=== PATIENT | female | born 1950 | race African-American/Black ===

== ENCOUNTER 2022-03-28 16:46 | Inpatient (IN) ==
[2022-03-28 18:22] LABS: Basophils % 0.1 %; Eosinophils % 0.3 %; Hematocrit 27.5 % (35.3-44.9); Hemoglobin 8.2 g/dL (11.5-15.4); Immature Granulocytes % 0.3 % (0-4); Lymphocytes # 0.4 K/mcL (0.6-4.6); Lymphocytes % 5.5 %; Mean Corpuscular HGB Conc 29.8 g/dL (31.6-35.5); Mean Corpuscular Hemoglobin 25.2 pg (28.0-33.3); Mean Corpuscular Volume 84.6 fL (83.0-100.0); Mean Platelet Volume 10.7 fL (9.4-12.4); Monocytes # 0.5 K/mcL (0.0-1.3); Monocytes % 6.6 %; Neutrophils # 6.8 K/mcL (1.6-8.9); Platelet Count 322 K/mcL (140-400); Red Blood Count 3.25 M/mcL (3.82-4.97); Segmented Neutrophils % 87.2 %; White Blood Count 7.8 K/mcL (4.3-11.1)
[2022-03-28 18:35] LABS: Activated Partial Thrombo Time 68.3 Seconds (26.0-36.0)
[2022-03-28 18:43] LABS: Albumin 3.4 g/dL (3.5-5.7); Albumin/Globulin Ratio 1.1 (1.1-2.2); Bilirubin,Total 0.4 mg/dL (0.3-1.0); Calcium 9.7 mg/dL (8.6-10.3); Globulin 3.2 g/dL (2.4-3.5); INR 17.5; Potassium 3.4 mEq/L (3.5-5.1); Total Protein 6.6 g/dL (6.4-8.9)
[2022-03-28] MEDS ORDERED: Clindamycin 600 MG/50 ML 600 MG/50 ML IV.SOLN IVPB STA (18:48)
[2022-03-28] MEDS ORDERED: Acetaminophen IV 1,000 MG/100 ML BAG IVPB ONE (18:54)
[2022-03-28] MEDS ORDERED: Ondansetron 4 MG/2 ML VIAL IVP PRN (19:41)
[2022-03-28] MEDS ORDERED: Naloxone 0.4 MG/ML INJ IVP PRN (19:41)
[2022-03-28] MEDS ORDERED: *HR* Dextrose 50 % in Water (Syg) 50 ML SYRINGE IVP PRN (19:45)
[2022-03-28] MEDS ORDERED: D5% in Water 1,000 ML IVC PRN (19:45)
[2022-03-28] MEDS ORDERED: Dextrose Gel 15 GM/37.5 ML TUBE PO PRN ×2 (19:45)
[2022-03-28] MEDS ORDERED: Chlorhexidine Rinse 15 ML MOUTHWASH MM SCH (21:00)
[2022-03-28] MEDS ORDERED: Saliva Stimulant 44.3ml BOTTLE PO PRN (21:00)
[2022-03-28 21:36] LABS: Basophils % 0.4 %; Eosinophils % 0.1 %; Hematocrit 26.9 % (35.3-44.9); Immature Granulocytes % 0.1 % (0-4); Immature Reticulocyte % 4.2 % (11.0-38.0); Lymphocytes # 0.6 K/mcL (0.6-4.6); Lymphocytes % 7.5 %; Mean Corpuscular HGB Conc 29.7 g/dL (31.6-35.5); Mean Corpuscular Hemoglobin 24.9 pg (28.0-33.3); Mean Corpuscular Volume 83.8 fL (83.0-100.0); Mean Platelet Volume 10.2 fL (9.4-12.4); Monocytes # 0.7 K/mcL (0.0-1.3); Monocytes % 8.4 %; Neutrophils # 6.8 K/mcL (1.6-8.9); Platelet Count 314 K/mcL (140-400); Red Blood Count 3.21 M/mcL (3.82-4.97); Red Cell Distribution Width 18.1 % (11.5-14.5); Retculocyte # 0.01 M/mcL (0.05-0.10); Reticulocyte % 0.3 % (1.6-2.8); Segmented Neutrophils % 83.5 %; White Blood Count 8.2 K/mcL (4.3-11.1)
[2022-03-29] MEDS ORDERED: Clindamycin 600 MG/50 ML 600 MG/50 ML IV.SOLN IVPB SCH (01:00)
[2022-03-29 01:28] LABS: VBG Ionized Calcium 1.09 mmol/L (1.15-1.35)
[2022-03-29 01:33] LABS: Basophils % 0.2 %; Eosinophils % 0.5 %; Hematocrit 26.6 % (35.3-44.9); Hemoglobin 7.8 g/dL (11.5-15.4); Immature Granulocytes % 0.1 % (0-4); Lymphocytes # 0.6 K/mcL (0.6-4.6); Lymphocytes % 6.9 %; Mean Corpuscular HGB Conc 29.3 g/dL (31.6-35.5); Mean Corpuscular Hemoglobin 24.5 pg (28.0-33.3); Mean Corpuscular Volume 83.4 fL (83.0-100.0); Mean Platelet Volume 10.6 fL (9.4-12.4); Monocytes # 0.9 K/mcL (0.0-1.3); Monocytes % 10.5 %; Neutrophils # 6.7 K/mcL (1.6-8.9); Platelet Count 313 K/mcL (140-400); Red Blood Count 3.19 M/mcL (3.82-4.97); Red Cell Distribution Width 17.9 % (11.5-14.5); Segmented Neutrophils % 81.8 %; White Blood Count 8.2 K/mcL (4.3-11.1)
[2022-03-29 01:46] LABS: Activated Partial Thrombo Time 62.9 Seconds (26.0-36.0)
[2022-03-29 01:52] LABS: Albumin 3.4 g/dL (3.5-5.7); Albumin/Globulin Ratio 1.2 (1.1-2.2); Bilirubin,Total 0.4 mg/dL (0.3-1.0); Calcium 9.6 mg/dL (8.6-10.3); Globulin 2.9 g/dL (2.4-3.5); INR 15.3; Magnesium 1.8 mg/dL (1.6-2.6); Phosphorous 4.8 mg/dL (2.7-4.5); Potassium 3.7 mEq/L (3.5-5.1); Prothrombin Time 166.3 Seconds (9.4-12.1); Total Protein 6.3 g/dL (6.4-8.9)
[2022-03-29 02:34] LABS: Folate 6.5 ng/mL (3.0-16.0)
[2022-03-29 03:03] LABS: Estimated Average Glucose 123 mg/dl; Hemoglobin A1C 5.9 %
[2022-03-29] MEDS ORDERED: Ipratropium/Albuterol Neb 3 ML IH PRN (04:37)
[2022-03-29] MEDS ORDERED: 0.9 % Sodium Chloride 250 ML ONE ×2 (05:24→22:54)
[2022-03-29] MEDS: Acetaminophen 325 MG TABLET PO PRN (05:25)
[2022-03-29] MEDS: Clindamycin 600 MG/50 ML 600 MG/50 ML IV.SOLN IVPB SCH ×3 (05:25→21:27)
[2022-03-29] MEDS ORDERED: *HR* Phytonadione 5 MG TABLET PO ONE (10:23)
[2022-03-29 12:28] LABS: Bilirubin,Urine Negative (Negative); Blood,Urine Negative (Negative); Clarity,Urine Clear (Clear); Color,Urine Colorless (Yellow); Glucose,Urine (UA) Normal (Normal); Ketones,Urine Negative (Negative); Leukocyte Esterase,Urine Negative (Negative); Nitrite,Urine Negative (Negative); Protein,Urine Negative (Neg-Trace); Specific Gravity,Urine 1.013 (1.010-1.025); Urobilinogen,Urine Normal (Normal)
[2022-03-29 12:59] LABS: Protein/Creatinine Ratio,Urine 0.18 mg/mg (0.00-0.20); Sodium, Urine 41.3 mEq/L
[2022-03-29 14:10] LABS: Hematocrit 24.2 % (35.3-44.9); Hemoglobin 7.1 g/dL (11.5-15.4)
[2022-03-29] MEDS: metroNIDAZOLE 250 MG TABLET PO SCH ×3 (14:29→21:27)
[2022-03-29] MEDS: Insulin LISPRO 300 UNITS/3 ML VIAL SUBQ SCH ×2 (17:49→21:28)
[2022-03-29] MEDS: Saline Nasal Spray 44 ML BOTTLE NS SCH ×2 (17:52→21:28)
[2022-03-29 21:33] LABS: Hematocrit 22.5 % (35.3-44.9); Hemoglobin 6.9 g/dL (11.5-15.4)
[2022-03-29 21:44] LABS: INR 4.3
[2022-03-29 21:50] LABS: Prothrombin Time 46.9 Seconds (9.4-12.1)
[2022-03-30 00:47] LABS: Basophils % 0.1 %; Hematocrit 23.6 % (35.3-44.9); Immature Granulocytes % 0.3 % (0-4); Lymphocytes # 0.3 K/mcL (0.6-4.6); Mean Corpuscular HGB Conc 29.7 g/dL (31.6-35.5); Mean Corpuscular Hemoglobin 24.6 pg (28.0-33.3); Mean Corpuscular Volume 83.1 fL (83.0-100.0); Mean Platelet Volume 10.5 fL (9.4-12.4); Monocytes # 0.6 K/mcL (0.0-1.3); Neutrophils # 10.2 K/mcL (1.6-8.9); Platelet Count 304 K/mcL (140-400); Red Blood Count 2.84 M/mcL (3.82-4.97); Segmented Neutrophils % 91.6 %; White Blood Count 11.2 K/mcL (4.3-11.1)
[2022-03-30 00:57] LABS: INR 4.1
[2022-03-30 01:02] LABS: Prothrombin Time 45.3 Seconds (9.4-12.1)
[2022-03-30 01:06] LABS: Calcium 9.8 mg/dL (8.6-10.3); Potassium 3.5 mEq/L (3.5-5.1)
[2022-03-30] MEDS ORDERED: *HR* Metoprolol 5 MG/5 ML VIAL IVP ONE ×2 (01:08→07:32)
[2022-03-30] MEDS: Clindamycin 600 MG/50 ML 600 MG/50 ML IV.SOLN IVPB SCH ×3 (05:00→21:54)
[2022-03-30 05:33] LABS: Hemoglobin 7.4 g/dL (11.5-15.4)
[2022-03-30] MEDS ORDERED: Potassium Chloride Elixir 20 MEQ/15 ML UDC PO ONE (07:34)
[2022-03-30] MEDS: metroNIDAZOLE 250 MG TABLET PO SCH ×3 (07:34→21:54)
[2022-03-30] MEDS ORDERED: 0.9 % Sodium Chloride 250 ML IVC SCH (07:45)
[2022-03-30] MEDS: Saline Nasal Spray 44 ML BOTTLE NS SCH ×4 (07:54→21:54)
[2022-03-30] MEDS: Insulin LISPRO 300 UNITS/3 ML VIAL SUBQ SCH ×4 (07:55→21:55)
[2022-03-30] MEDS ORDERED: *HR* Digoxin 0.5 MG/2 ML AMPUL IVP ONE (13:39)
[2022-03-30 14:53] LABS: Hematocrit 27.7 % (35.3-44.9); Hemoglobin 8.4 g/dL (11.5-15.4)
[2022-03-30 15:09] LABS: Calcium 8.3 mg/dL (8.6-10.3)
[2022-03-30] MEDS ORDERED: D5% in Water 250 ML IVC SCH (15:45)
[2022-03-30] MEDS: Magnesium Oxide 400 MG TABLET PO SCH (15:58)
[2022-03-30] MEDS ORDERED: MetroNIDAZOLE 500 MG/100 ML 500 MG/100 ML BAG IVPB SCH (16:00)
[2022-03-30] MEDS: Potassium Chloride Elixir 20 MEQ/15 ML UDC PO SCH ×2 (16:13→21:54)
[2022-03-30] MEDS: Pantoprazole 40 MG VIAL IVP SCH (18:22)
[2022-03-30] MEDS: Lactobacillus 1 EACH CAP.SPRINK PO SCH (21:54)
[2022-03-30 22:32] LABS: Hematocrit 25.8 % (35.3-44.9)
[2022-03-30 22:41] LABS: INR 3.2; Prothrombin Time 35.1 Seconds (9.4-12.1)
[2022-03-30 22:52] LABS: Calcium 10.1 mg/dL (8.6-10.3); Potassium 4.6 mEq/L (3.5-5.1)
[2022-03-31] MEDS: Clindamycin 600 MG/50 ML 600 MG/50 ML IV.SOLN IVPB SCH ×3 (06:25→20:09)
[2022-03-31] MEDS: Pantoprazole 40 MG VIAL IVP SCH ×2 (06:26→18:17)
[2022-03-31 06:50] LABS: Basophils % 0.2 %; Eosinophils % 0.2 %; Hematocrit 24.7 % (35.3-44.9); Hemoglobin 7.5 g/dL (11.5-15.4); Immature Granulocytes % 0.4 % (0-4); Lymphocytes # 0.6 K/mcL (0.6-4.6); Mean Corpuscular HGB Conc 30.4 g/dL (31.6-35.5); Mean Corpuscular Hemoglobin 26.6 pg (28.0-33.3); Mean Corpuscular Volume 87.6 fL (83.0-100.0); Mean Platelet Volume 11.2 fL (9.4-12.4); Monocytes # 0.9 K/mcL (0.0-1.3); Monocytes % 9.7 %; Neutrophils # 7.9 K/mcL (1.6-8.9); Platelet Count 263 K/mcL (140-400); Red Blood Count 2.82 M/mcL (3.82-4.97); Red Cell Distribution Width 17.1 % (11.5-14.5); Segmented Neutrophils % 83.5 %; White Blood Count 9.4 K/mcL (4.3-11.1)
[2022-03-31 07:00] LABS: INR 3.5; Prothrombin Time 38.7 Seconds (9.4-12.1)
[2022-03-31 07:05] LABS: Calcium 10.1 mg/dL (8.6-10.3); Potassium 4.2 mEq/L (3.5-5.1)
[2022-03-31] MEDS ORDERED: 0.9 % Sodium Chloride 250 ML IVC SCH (07:45)
[2022-03-31] MEDS ORDERED: D5% in Water 1,000 ML IVC SCH (07:45)
[2022-03-31] MEDS: Insulin LISPRO 300 UNITS/3 ML VIAL SUBQ SCH ×4 (08:29→20:51)
[2022-03-31] MEDS: metroNIDAZOLE 250 MG TABLET PO SCH ×4 (09:05→20:10)
[2022-03-31] MEDS: Lactobacillus 1 EACH CAP.SPRINK PO SCH ×2 (09:05→20:10)
[2022-03-31] MEDS: Magnesium Oxide 400 MG TABLET PO SCH (09:05)
[2022-03-31] MEDS: Saline Nasal Spray 44 ML BOTTLE NS SCH ×4 (09:06→20:11)
[2022-03-31 14:02] LABS: Hematocrit 24.3 % (35.3-44.9); Hemoglobin 7.4 g/dL (11.5-15.4)
[2022-03-31 14:30] LABS: Calcium 10.1 mg/dL (8.6-10.3); Potassium 4.5 mEq/L (3.5-5.1)
[2022-03-31 20:02] LABS: Hematocrit 22.4 % (35.3-44.9); Hemoglobin 6.8 g/dL (11.5-15.4)
[2022-03-31 20:23] LABS: Calcium 9.8 mg/dL (8.6-10.3); Potassium 4.4 mEq/L (3.5-5.1)
[2022-03-31 20:35] LABS: INR 2.8; Prothrombin Time 30.9 Seconds (9.4-12.1)
[2022-04-01] MEDS ORDERED: 0.9 % Sodium Chloride 250 ML ONE (00:05)
[2022-04-01] MEDS: Pantoprazole 40 MG VIAL IVP SCH ×2 (05:12→17:25)
[2022-04-01] MEDS: Clindamycin 600 MG/50 ML 600 MG/50 ML IV.SOLN IVPB SCH ×3 (05:14→21:06)
[2022-04-01 05:30] LABS: Basophils % 0.3 %; Eosinophils # 0.2 K/mcL (0.0-0.6); Hematocrit 25.2 % (35.3-44.9); Hemoglobin 7.7 g/dL (11.5-15.4); Immature Granulocytes % 0.5 % (0-4); Lymphocytes # 0.7 K/mcL (0.6-4.6); Lymphocytes % 7.4 %; Mean Corpuscular HGB Conc 30.6 g/dL (31.6-35.5); Mean Corpuscular Hemoglobin 27.1 pg (28.0-33.3); Mean Corpuscular Volume 88.7 fL (83.0-100.0); Mean Platelet Volume 10.3 fL (9.4-12.4); Monocytes # 0.8 K/mcL (0.0-1.3); Monocytes % 8.6 %; Neutrophils # 7.2 K/mcL (1.6-8.9); Platelet Count 225 K/mcL (140-400); Red Blood Count 2.84 M/mcL (3.82-4.97); Red Cell Distribution Width 16.7 % (11.5-14.5); Segmented Neutrophils % 81.2 %; White Blood Count 8.9 K/mcL (4.3-11.1)
[2022-04-01 05:45] LABS: INR 3.6; Prothrombin Time 39.8 Seconds (9.4-12.1)
[2022-04-01 05:49] LABS: BUN/Creatinine Ratio 62 (6-26); Blood Urea Nitrogen 61 mg/dL (8-23); Calcium 9.5 mg/dL (8.6-10.3); Carbon Dioxide 34 mEq/L (23-29); Chloride 106 mEq/L (98-107); Glucose 114 mg/dL (70-105); Osmolality,Calculated 316 (280-300); Potassium 4.2 mEq/L (3.5-5.1); Sodium 144 mEq/L (136-145); eGFR For African Americans > 60 (> 60); eGFR For Non-African Americans 56 (> 60)
[2022-04-01 06:51] LABS: Magnesium 2.1 mg/dL (1.6-2.6)
[2022-04-01] MEDS: Insulin LISPRO 300 UNITS/3 ML VIAL SUBQ SCH ×4 (09:14→21:17)
[2022-04-01] MEDS: Lactobacillus 1 EACH CAP.SPRINK PO SCH ×2 (09:15→21:05)
[2022-04-01] MEDS: Magnesium Oxide 400 MG TABLET PO SCH (09:15)
[2022-04-01] MEDS: Saline Nasal Spray 44 ML BOTTLE NS SCH ×4 (09:16→21:09)
[2022-04-01] MEDS: metroNIDAZOLE 250 MG TABLET PO SCH ×4 (09:16→21:05)
[2022-04-01] MEDS ORDERED: *HR* Phytonadione 5 MG TABLET PO ONE (10:43)
[2022-04-01 14:33] LABS: Hemoglobin 7.7 g/dL (11.5-15.4)
[2022-04-02] MEDS: Clindamycin 600 MG/50 ML 600 MG/50 ML IV.SOLN IVPB SCH ×3 (04:39→21:07)
[2022-04-02] MEDS: Acetaminophen 325 MG TABLET PO PRN ×2 (04:54→13:16)
[2022-04-02 05:12] LABS: Basophils % 0.4 %; Eosinophils # 0.2 K/mcL (0.0-0.6); Eosinophils % 2.7 %; Hematocrit 25.3 % (35.3-44.9); Hemoglobin 7.6 g/dL (11.5-15.4); Immature Granulocytes % 0.5 % (0-4); Lymphocytes # 0.7 K/mcL (0.6-4.6); Lymphocytes % 8.6 %; Mean Corpuscular Hemoglobin 26.6 pg (28.0-33.3); Mean Corpuscular Volume 88.5 fL (83.0-100.0); Mean Platelet Volume 10.6 fL (9.4-12.4); Monocytes # 0.7 K/mcL (0.0-1.3); Monocytes % 7.8 %; Neutrophils # 6.7 K/mcL (1.6-8.9); Platelet Count 257 K/mcL (140-400); Red Blood Count 2.86 M/mcL (3.82-4.97); White Blood Count 8.4 K/mcL (4.3-11.1)
[2022-04-02 05:17] LABS: INR 2.8; Prothrombin Time 30.7 Seconds (9.4-12.1)
[2022-04-02 05:27] LABS: BUN/Creatinine Ratio 44 (6-26); Blood Urea Nitrogen 44 mg/dL (8-23); Calcium 9.3 mg/dL (8.6-10.3); Carbon Dioxide 33 mEq/L (23-29); Chloride 106 mEq/L (98-107); Glucose 108 mg/dL (70-105); Osmolality,Calculated 308 (280-300); Potassium 4.1 mEq/L (3.5-5.1); Sodium 143 mEq/L (136-145); eGFR For African Americans > 60 (> 60); eGFR For Non-African Americans 56 (> 60)
[2022-04-02] MEDS: Pantoprazole 40 MG VIAL IVP SCH ×2 (05:52→18:10)
[2022-04-02] MEDS: Lactobacillus 1 EACH CAP.SPRINK PO SCH ×2 (09:22→21:07)
[2022-04-02] MEDS: Insulin LISPRO 300 UNITS/3 ML VIAL SUBQ SCH ×4 (09:22→21:08)
[2022-04-02] MEDS: metroNIDAZOLE 250 MG TABLET PO SCH ×4 (09:22→21:07)
[2022-04-02] MEDS: Magnesium Oxide 400 MG TABLET PO SCH (09:22)
[2022-04-02] MEDS: Saline Nasal Spray 44 ML BOTTLE NS SCH ×4 (09:24→21:08)
[2022-04-02] MEDS ORDERED: BISMUTH SUBSALICYLATE 262 MG PO SCH (17:00)
[2022-04-02] MEDS ORDERED: TETRACYCLINE HCL 500 MG PO SCH (17:00)
[2022-04-02 17:17] LABS: Hematocrit 26.4 % (35.3-44.9); Hemoglobin 7.9 g/dL (11.5-15.4)
[2022-04-02] MEDS: lisinopriL 10 MG TABLET PO SCH (21:07)
[2022-04-03] MEDS: Pantoprazole 40 MG VIAL IVP SCH ×2 (05:49→17:03)
[2022-04-03] MEDS: Clindamycin 600 MG/50 ML 600 MG/50 ML IV.SOLN IVPB SCH ×3 (05:49→21:07)
[2022-04-03 06:16] LABS: Basophils % 0.3 %; Eosinophils # 0.2 K/mcL (0.0-0.6); Eosinophils % 2.6 %; Hematocrit 25.6 % (35.3-44.9); Hemoglobin 7.6 g/dL (11.5-15.4); Immature Granulocytes % 0.8 % (0-4); Lymphocytes # 0.5 K/mcL (0.6-4.6); Lymphocytes % 6.7 %; Mean Corpuscular HGB Conc 29.7 g/dL (31.6-35.5); Mean Corpuscular Hemoglobin 27.6 pg (28.0-33.3); Mean Corpuscular Volume 93.1 fL (83.0-100.0); Mean Platelet Volume 10.7 fL (9.4-12.4); Monocytes # 0.6 K/mcL (0.0-1.3); Neutrophils # 6.2 K/mcL (1.6-8.9); Platelet Count 245 K/mcL (140-400); Red Blood Count 2.75 M/mcL (3.82-4.97); Red Cell Distribution Width 17.7 % (11.5-14.5); Segmented Neutrophils % 81.6 %; White Blood Count 7.6 K/mcL (4.3-11.1)
[2022-04-03 06:26] LABS: INR 2.6; Prothrombin Time 28.6 Seconds (9.4-12.1)
[2022-04-03 06:38] LABS: % Iron Saturation 7 % (15-50); Iron 24 mcg/dL (50-170); Transferrin 230 mg/dL (203-362)
[2022-04-03] MEDS: Insulin LISPRO 300 UNITS/3 ML VIAL SUBQ SCH ×4 (08:19→21:08)
[2022-04-03] MEDS: Magnesium Oxide 400 MG TABLET PO SCH (08:25)
[2022-04-03] MEDS: Lactobacillus 1 EACH CAP.SPRINK PO SCH ×2 (08:25→21:05)
[2022-04-03] MEDS: metroNIDAZOLE 250 MG TABLET PO SCH ×4 (08:25→21:05)
[2022-04-03] MEDS: Saline Nasal Spray 44 ML BOTTLE NS SCH ×4 (08:25→21:09)
[2022-04-03] MEDS: Iron Sucrose Complex 200 MG in 0.9 % Sodium Chloride 100 ML IVPB SCH (08:26)
[2022-04-03] MEDS: lisinopriL 10 MG TABLET PO SCH (21:05)
[2022-04-04] MEDS: Pantoprazole 40 MG VIAL IVP SCH ×2 (05:02→18:58)
[2022-04-04] MEDS: Clindamycin 600 MG/50 ML 600 MG/50 ML IV.SOLN IVPB SCH ×3 (05:02→20:37)
[2022-04-04] MEDS: Insulin LISPRO 300 UNITS/3 ML VIAL SUBQ SCH ×4 (07:26→20:32)
[2022-04-04 07:56] LABS: Hematocrit 27.9 % (35.3-44.9); Hemoglobin 8.3 g/dL (11.5-15.4)
[2022-04-04 08:03] LABS: INR 2.4; Prothrombin Time 26.1 Seconds (9.4-12.1)
[2022-04-04] MEDS: Magnesium Oxide 400 MG TABLET PO SCH (08:10)
[2022-04-04] MEDS: metroNIDAZOLE 250 MG TABLET PO SCH ×4 (08:10→20:36)
[2022-04-04] MEDS: Lactobacillus 1 EACH CAP.SPRINK PO SCH ×2 (08:10→20:36)
[2022-04-04] MEDS: Saline Nasal Spray 44 ML BOTTLE NS SCH ×4 (08:12→20:37)
[2022-04-04] MEDS: Iron Sucrose Complex 200 MG in 0.9 % Sodium Chloride 100 ML IVPB SCH (08:17)
[2022-04-04] MEDS: lisinopriL 10 MG TABLET PO SCH (20:36)
[2022-04-05] MEDS: Clindamycin 600 MG/50 ML 600 MG/50 ML IV.SOLN IVPB SCH (05:44)
[2022-04-05] MEDS: Pantoprazole 40 MG VIAL IVP SCH (05:44)
[2022-04-05 06:11] LABS: Basophils % 0.4 %; Eosinophils # 0.3 K/mcL (0.0-0.6); Eosinophils % 3.5 %; Hematocrit 27.5 % (35.3-44.9); Hemoglobin 8.3 g/dL (11.5-15.4); Immature Granulocytes % 1.1 % (0-4); Lymphocytes # 0.7 K/mcL (0.6-4.6); Lymphocytes % 8.1 %; Mean Corpuscular HGB Conc 30.2 g/dL (31.6-35.5); Mean Corpuscular Hemoglobin 27.5 pg (28.0-33.3); Mean Corpuscular Volume 91.1 fL (83.0-100.0); Mean Platelet Volume 10.4 fL (9.4-12.4); Monocytes # 0.9 K/mcL (0.0-1.3); Monocytes % 10.6 %; Neutrophils # 6.1 K/mcL (1.6-8.9); Nucleated Red Blood Cells 0.3 /100 WBC (0); Platelet Count 274 K/mcL (140-400); Red Blood Count 3.02 M/mcL (3.82-4.97); Red Cell Distribution Width 18.7 % (11.5-14.5); Segmented Neutrophils % 76.3 %
[2022-04-05 06:24] LABS: INR 2.1; Prothrombin Time 23.4 Seconds (9.4-12.1)
[2022-04-05] MEDS: Insulin LISPRO 300 UNITS/3 ML VIAL SUBQ SCH ×4 (08:00→21:15)
[2022-04-05] MEDS: Lactobacillus 1 EACH CAP.SPRINK PO SCH ×2 (08:00→21:15)
[2022-04-05] MEDS: metroNIDAZOLE 250 MG TABLET PO SCH (08:00)
[2022-04-05] MEDS: Magnesium Oxide 400 MG TABLET PO SCH (08:01)
[2022-04-05] MEDS: Saline Nasal Spray 44 ML BOTTLE NS SCH ×4 (08:01→21:17)
[2022-04-05] MEDS: Acetaminophen 325 MG TABLET PO PRN (13:17)
[2022-04-05] MEDS: lisinopriL 10 MG TABLET PO SCH (21:15)
[2022-04-06] MEDS: Insulin LISPRO 300 UNITS/3 ML VIAL SUBQ SCH ×4 (07:58→21:35)
[2022-04-06] MEDS: Magnesium Oxide 400 MG TABLET PO SCH (08:07)
[2022-04-06] MEDS: Lactobacillus 1 EACH CAP.SPRINK PO SCH ×2 (08:08→20:29)
[2022-04-06] MEDS: Saline Nasal Spray 44 ML BOTTLE NS SCH ×4 (09:00→20:31)
[2022-04-06] MEDS ORDERED: Iron Sucrose Complex 200 MG in 0.9 % Sodium Chloride 100 ML IVPB ONE (13:24)
[2022-04-06] MEDS: lisinopriL 10 MG TABLET PO SCH (20:29)
[2022-04-07 06:53] LABS: Basophils % 0.4 %; Eosinophils # 0.1 K/mcL (0.0-0.6); Eosinophils % 1.7 %; Hematocrit 28.7 % (35.3-44.9); Hemoglobin 8.4 g/dL (11.5-15.4); INR 1.3; Lymphocytes # 0.5 K/mcL (0.6-4.6); Lymphocytes % 6.7 %; Mean Corpuscular HGB Conc 29.3 g/dL (31.6-35.5); Mean Corpuscular Hemoglobin 27.7 pg (28.0-33.3); Mean Corpuscular Volume 94.7 fL (83.0-100.0); Mean Platelet Volume 9.9 fL (9.4-12.4); Monocytes # 0.7 K/mcL (0.0-1.3); Monocytes % 9.3 %; Neutrophils # 6.3 K/mcL (1.6-8.9); Platelet Count 297 K/mcL (140-400); Prothrombin Time 14.7 Seconds (9.4-12.1); Red Blood Count 3.03 M/mcL (3.82-4.97); Red Cell Distribution Width 19.6 % (11.5-14.5); Segmented Neutrophils % 80.9 %; White Blood Count 7.7 K/mcL (4.3-11.1)
[2022-04-07 07:18] LABS: BUN/Creatinine Ratio 18 (6-26); Blood Urea Nitrogen 14 mg/dL (8-23); Calcium 9.6 mg/dL (8.6-10.3); Carbon Dioxide 29 mEq/L (23-29); Chloride 109 mEq/L (98-107); Glucose 83 mg/dL (70-105); Osmolality,Calculated 292 (280-300); Potassium 4.3 mEq/L (3.5-5.1); Sodium 141 mEq/L (136-145); eGFR For African Americans > 60 (> 60); eGFR For Non-African Americans > 60 (> 60)
[2022-04-07] MEDS: Insulin LISPRO 300 UNITS/3 ML VIAL SUBQ SCH ×4 (07:48→21:19)
[2022-04-07] MEDS: Magnesium Oxide 400 MG TABLET PO SCH (08:02)
[2022-04-07] MEDS: Saline Nasal Spray 44 ML BOTTLE NS SCH ×4 (08:03→21:18)
[2022-04-07] MEDS: Lactobacillus 1 EACH CAP.SPRINK PO SCH ×2 (08:03→21:18)
[2022-04-07] MEDS: lisinopriL 10 MG TABLET PO SCH (21:18)
[2022-04-08] MEDS: Insulin LISPRO 300 UNITS/3 ML VIAL SUBQ SCH ×4 (09:09→21:03)
[2022-04-08] MEDS: Lactobacillus 1 EACH CAP.SPRINK PO SCH ×2 (09:10→20:22)
[2022-04-08] MEDS: Magnesium Oxide 400 MG TABLET PO SCH (09:10)
[2022-04-08] MEDS: Saline Nasal Spray 44 ML BOTTLE NS SCH ×4 (09:10→20:22)
[2022-04-08] MEDS: lisinopriL 10 MG TABLET PO SCH (20:22)
[2022-04-09] MEDS: Insulin LISPRO 300 UNITS/3 ML VIAL SUBQ SCH ×4 (08:32→21:16)
[2022-04-09] MEDS: Lactobacillus 1 EACH CAP.SPRINK PO SCH ×2 (09:03→21:16)
[2022-04-09] MEDS: Magnesium Oxide 400 MG TABLET PO SCH (09:04)
[2022-04-09] MEDS: Saline Nasal Spray 44 ML BOTTLE NS SCH ×4 (09:17→21:16)
[2022-04-09] MEDS: lisinopriL 10 MG TABLET PO SCH (21:15)
[2022-04-10 01:23] LABS: Hematocrit 26.7 % (35.3-44.9); Hemoglobin 7.8 g/dL (11.5-15.4); Mean Corpuscular HGB Conc 29.2 g/dL (31.6-35.5); Mean Corpuscular Hemoglobin 27.7 pg (28.0-33.3); Mean Corpuscular Volume 94.7 fL (83.0-100.0); Mean Platelet Volume 9.7 fL (9.4-12.4); Platelet Count 229 K/mcL (140-400); Red Blood Count 2.82 M/mcL (3.82-4.97); Red Cell Distribution Width 19.9 % (11.5-14.5); White Blood Count 7.7 K/mcL (4.3-11.1)
[2022-04-10 01:40] LABS: BUN/Creatinine Ratio 17 (6-26); Blood Urea Nitrogen 17 mg/dL (8-23); Calcium 9.1 mg/dL (8.6-10.3); Carbon Dioxide 28 mEq/L (23-29); Chloride 110 mEq/L (98-107); Glucose 100 mg/dL (70-105); Osmolality,Calculated 294 (280-300); Potassium 4.4 mEq/L (3.5-5.1); Sodium 141 mEq/L (136-145); eGFR For African Americans > 60 (> 60); eGFR For Non-African Americans 54 (> 60)
[2022-04-10] MEDS: Insulin LISPRO 300 UNITS/3 ML VIAL SUBQ SCH ×2 (07:41→11:41)
[2022-04-10] MEDS: Magnesium Oxide 400 MG TABLET PO SCH (07:41)
[2022-04-10] MEDS: Saline Nasal Spray 44 ML BOTTLE NS SCH ×2 (07:42→11:41)
[2022-04-10] MEDS: Lactobacillus 1 EACH CAP.SPRINK PO SCH (07:42)
[2022-04-10 07:46] VITALS: O2SAT 100
[2022-04-10 11:24] VITALS: BP 111/69; PULSE 72; TEMP 98.3
== END 2022-04-10 16:31 | disposition home health service (06) | DRG 813 ==
LOC: EMEROOARM 16:46 → 3ANU 16:46 → SUATTDRO 19:30 → 3ANU 20:51 → SUATTDRO 22:37
PROVIDERS: ADMIT Internal Medicine; ATTEND Family Medicine